=== PATIENT | female | born 1965 | race American Indian/Alaskan Native ===

== ENCOUNTER 2019-04-05 21:00 | Emergency (ER) | payer OTHER, SELFPAY ==
[2019-04-05 21:34] VITALS: BP 148/86
--- NOTE | 2019-04-05 21:34 | Event Note ---
ED Screening Note ED Screening Note: rash on r ear no other s/s pmh none rx none This initial assessment/diagnostic orders/clinical plan/treatment(s) is/are subject to change based on patients health status, clinical progression and re- assessment by fellow clinical providers in the ED. Further treatment and workup at subsequent clinical providers discretion. Patient/guardian urged not to elope from the ED as their condition may be serious if not clinically assessed and managed. Initial orders include: eval ACC
--- NOTE | 2019-04-06 01:02 | Emergency Department Report ---
ED Rash HPI - HPI Chief Complaint: Skin Rash Stated Complaint: RASH ON RT EAR Time Seen by Provider: 04/05/19 21:33 Duration: 2 Days Location: Head Suspected Cause: Unknown (Tylenol) Rash Symptoms: Yes Itching, Yes Peeling, No Facial Swelling, No Tongue/Oral Swelling, No Breathing Difficulties, No Choking Sensation, No Wheezing/Dyspnea, No Blistering, No Fever, No Lightheaded, No Malaise, No Myalgias Severity: moderate Other History: rash to ear x 2 days erythema bulla yellow encrustation. ED Review of Systems ROS: Stated complaint: RASH ON RT EAR Other details as noted in HPI Constitutional: denies: chills, fever Eyes: denies: eye pain, eye discharge, vision change ENT: denies: ear pain, throat pain Respiratory: denies: cough, shortness of breath, wheezing Cardiovascular: denies: chest pain, palpitations Endocrine: no symptoms reported Gastrointestinal: denies: abdominal pain, nausea, diarrhea Genitourinary: denies: urgency, dysuria, discharge Musculoskeletal: denies: back pain, joint swelling, arthralgia Skin: rash (right ear lobe ) Neurological: denies: headache, weakness, paresthesias Psychiatric: denies: anxiety, depression Hematological/Lymphatic: denies: easy bleeding, easy bruising ED Past Medical Hx - Past Medical History Previous Medical History?: No Hx Congestive Heart Failure: No Hx Diabetes: No Hx Asthma: No Hx COPD: No Additional medical history: anemia - Surgical History Past Surgical History?: Yes Additional Surgical History: hyst - Social History Smoking Status: Current Every Day Smoker Substance Use Type: None - Medications Home Medications: Home Medications Medication Instructions Recorded Confirmed Last Taken Type Fluticasone Propionate [Flonase] 1 - 2 spray NS DAILY PRN #1 bottle 08/14/13 08/16/13 08/15/13 Rx HYDROcodone/ACETAMINOPHEN [[place] 1 each PO Q6HR #20 tablet 08/16/13 Unknown Rx 5/325 Tablet] Ibuprofen [Motrin] 800 mg PO TID PRN #50 tablet 08/16/13 Unknown Rx Metaxalone [Skelaxin] 800 mg PO TID #30 tablet 08/16/13 Unknown Rx Sulfamethoxazole/Trimethoprim 1 each PO BID #20 tablet 08/16/13 Unknown Rx [Bactrim DS] Mupirocin [Bactroban 2% OINT] 1 applic TP TID 14 Days #1 tube 04/06/19 Unknown Rx diphenhydrAMINE [Benadryl CAP] 25 mg PO Q6HR PRN #30 capsule 04/06/19 Unknown Rx Rash Exam - Exam General: Vital signs noted. No distress. Alert and acting appropriately. HEENT: No Periorbital Edema, No Conjuctival Injection, No Chemosis, No Perioral Edema, No Tongue Edema, No Uvular Edema, No Compromised Airway, No Drooling Lungs: Yes Good Air Exchange (Normal Breath Sounds), No Wheezes, No Ronchi, No Stridor, No Cough, No Labored Respirations, No Retractions, No Use of Accessory Muscles, No Other Abnormal Lung Sounds Heart: Yes Regular, No Murmur Skin: Yes Urticarial Rash, Yes Maculopapular Rash, Yes Excoriations, Yes Encrustations, No Weeping, No Tenderness, No Erythema, No Edema Other: Positive: Abdomen Normal, Neurologic Normal, Musculoskeletal Normal ED Course Vital Signs 04/05/19 21:33 Temperature 98.1 F Pulse Rate 97 H Respiratory 18 Rate Blood Pressure 148/86 O2 Sat by Pulse 97 Oximetry ED Medical Decision Making - Medical Decision Making this is impetigo to ear lobe plan mupirocin oint, bendaryl follow up with pcp in 2-3 days pt verbalized agreement and understanding of discharge plan. Critical care attestation.: If time is entered above; I have spent that time in minutes in the direct care of this critically ill patient, excluding procedure time. ED Disposition Clinical Impression: Impetigo Disposition: - TO HOME OR SELFCARE Is pt being admited?: No Does the pt Need Aspirin: No Condition: Stable Instructions: Impetigo (ED) Prescriptions: Mupirocin [Bactroban 2% OINT] 1 applic TP TID 14 Days #1 tube diphenhydrAMINE [Benadryl CAP] 25 mg PO Q6HR PRN #30 capsule PRN Reason: Itching Referrals: PRIMARY CARE,MD [Primary Care Provider] - 3-5 Days Forms: Work/School Release Form(ED) Time of Disposition: 01:06
== END 2019-04-06 07:31 | disposition home or self-care (01) ==
LOC: ED 21:00
DX: L01.00 Impetigo, unspecified (principal); D64.9 Anemia, unspecified; F17.200 Nicotine dependence, unspecified, uncomplicated; Z90.710 Acquired absence of both cervix and uterus; Z88.0 Allergy status to penicillin; Z79.899 Other long term (current) drug therapy